=== PATIENT | male | born 1970 | race Caucasian/White ===

== ENCOUNTER 2020-03-01 18:06 | Emergency (ER) | payer MEDICAID, OTHER ==
[~2020-03-01] VITALS: Ht 177.8 cm; Wt 118.0 kg
[2020-03-01 18:09] VITALS: BP 153/98
[2020-03-01] MEDS ORDERED: CefTRIAXone 1000mg IM Kit (w/lidocaine diluent) IM ONE (18:35)
[2020-03-01] MEDS ORDERED: AZIT-63 PO (18:36)
== END 2020-03-01 18:48 | disposition home or self-care (01) ==
LOC: ER 18:06
DX: N50.819 Testicular pain, unspecified (principal); Z90.49 Acquired absence of other specified parts of digestive tract; Z79.2 Long term (current) use of antibiotics
CPT/HCPCS: 96372; 99283; J0696